=== PATIENT | male | born 1970 | race Native Hawaiian/Other Pacific Islander ===

== ENCOUNTER 2018-03-27 13:50 | Emergency (ER) | payer BC ==
[~2018-03-27] VITALS: Ht 160 cm; Wt 77.1 kg
[2018-03-27 14:47] LABS: *BILIRUBIN,URIN NEGATIVE (NEGATIVE); *BLOOD, URINE NEGATIVE (NEGATIVE); *CLARITY,URINE CLEAR (CLEAR); *COLOR,URINE YELLOW (YELLOW); *KETONES,URINE TRACE (NEGATIVE); *UROBILINOGEN,URINE 0.2 E.U./dl (NORMAL); LEUKOCYTE ESTERASE ,URINE NEGATIVE (NEGATIVE); NITRITE, URINE NEGATIVE (NEGATIVE); PH,URINE 5.5 (5.0-8.0); UGLUCOSE NEGATIVE (NEGATIVE)
[2018-03-27 14:49] LABS: BACTERIA,URINE FEW /HPF (NONE SEEN); RBC,URINE NONE SEEN /HPF (0-3); SQUAMOUS EPITHELIAL CELL,UR FEW /HPF (NONE SEEN); WBC,URINE 0-3 /HPF (0-3)
--- NOTE | 2018-03-27 14:59 | NUR ---
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
--- NOTE | 2018-03-27 15:01 | NUR ---
Patient notified re: [employer] tech's arrival. Patient is resting comfortably on gurney while using his personal electronic device.
--- NOTE | 2018-03-27 15:50 | NUR ---
Patient discharged to home in stable conditon. Written and verbal after care instructions given to patient. Patient verbalizes understanding of instructions.
== END 2018-03-27 15:50 | disposition home or self-care (01) ==
LOC: ER 14:01
DX: N45.1 Epididymitis (principal)
CPT/HCPCS: 76870; A4663